=== PATIENT | female | born 1955 | race African-American/Black ===

== ENCOUNTER 2022-08-23 18:17 | Emergency (ER) | payer OTHER, BC ==
[~2022-08-23] VITALS: Ht 167.6 cm; Wt 97.5 kg
[2022-08-23 19:47] LABS: BASOPHILS % (AUTO) 0.2 % (0.0-5.0); EOSINOPHILS % (AUTO) 4.1 % (0.0-8.0); HEMATOCRIT 36.2 % (36-48); LYMPHOCYTES % (AUTO) 10.9 % (21.0-51.0); MEAN CORPUSCULAR HGB CONC 34.3 g/dL (32.0-36.0); MEAN CORPUSCULAR VOLUME 78.7 fL (79-99); NEUTROPHILS % (AUTO) 79.3 % (40.0-77.0); PLATELET COUNT (AUTO) 231 K/uL (130-400); RED CELL DISTRIBUTION WIDTH 15.9 % (11.0-15.5); WHITE BLOOD COUNT (AUTO) 12.8 K/uL (4.8-10.8)
[2022-08-23 20:06] LABS: ALBUMIN 4.2 g/dL (3.5-5.0)
[2022-08-23] MEDS ORDERED: LACT10SO9 PO (21:56)
[2022-08-24 02:10] VITALS: BP 161/74
== END 2022-08-24 02:15 | disposition home or self-care (01) ==
LOC: EDH 18:17
DX: K59.00 Constipation, unspecified (principal); E11.9 Type 2 diabetes mellitus without complications; E78.00 Pure hypercholesterolemia, unspecified; Z86.73 Personal history of transient ischemic attack (TIA), and cerebral infarction without residual deficits; Z88.1 Allergy status to other antibiotic agents
CPT/HCPCS: 36415; 74176; 80053; 85025

== ENCOUNTER 2022-09-09 19:50 | Emergency (ER) | payer BC, OTHER ==
[~2022-09-09] VITALS: Ht 165.1 cm; Wt 74.8 kg
[~2022-09-09 19:50] MED LIST: LACT10SO9 PO
[2022-09-09 20:25] LABS: BASOPHILS % (AUTO) 0.4 % (0.0-5.0); LYMPHOCYTES % (AUTO) 31.3 % (21.0-51.0); MEAN CORPUSCULAR HEMOGLOBIN 26.1 pg (27.0-33.0); MEAN CORPUSCULAR HGB CONC 33.8 g/dL (32.0-36.0); MEAN CORPUSCULAR VOLUME 77.1 fL (79-99); MONOCYTES % (AUTO) 9.6 % (3.0-13.0); NEUTROPHILS % (AUTO) 48.4 % (40.0-77.0); PLATELET COUNT (AUTO) 274 K/uL (130-400); RED BLOOD CELL COUNT(AUTO) 4.41 MIL/uL (4.00-5.50); RED CELL DISTRIBUTION WIDTH 15.9 % (11.0-15.5)
[2022-09-09 20:36] LABS: CARBON DIOXIDE 31 mmol/L (21-32); CHLORIDE 104 mmol/L (101-111); CREATININE 0.8 mg/dL (0.5-1.5); GLOMERULAR FILTR. RATE CALC 92 mL/min (>60); GLUCOSE,RANDOM 112 mg/dL (70-105); INR 0.93 (0.85-1.15); POTASSIUM 4.4 mmol/L (3.5-5.1); PROTHROMBIN TIME 10.2 SEC (9.6-11.6); SODIUM SERUM 141 mmol/L (136-145); UREA NITROGEN, BLOOD 24 mg/dL (7-18)
[2022-09-09 20:37] LABS: PARTIAL THROMBOPLASTIN TIME 23.7 SEC (26.3-35.5)
[2022-09-09 20:43] LABS: ALANINE AMINOTRANSFERASE 18 U/L (12-78); ALBUMIN 3.6 g/dL (3.5-5.0); ALCOHOL, BLOOD < 3 mg/dL (0-10); ASPARTATE AMINOTRANSFERASE 16 U/L (10-37); TOTAL PROTEIN, SERUM 7.7 g/dL (6.0-8.3)
[2022-09-09 22:54] VITALS: BP 168/65
[2022-09-09] MEDS ORDERED: CLOP-31 PO (23:03)
== END 2022-09-09 23:04 | disposition home or self-care (01) ==
LOC: EDH 19:50
DX: S09.90XA Unspecified injury of head, initial encounter (principal); E11.9 Type 2 diabetes mellitus without complications; E78.00 Pure hypercholesterolemia, unspecified; I10 Essential (primary) hypertension; Z79.02 Long term (current) use of antithrombotics/antiplatelets; Z86.73 Personal history of transient ischemic attack (TIA), and cerebral infarction without residual deficits; Z88.1 Allergy status to other antibiotic agents; Z79.899 Other long term (current) drug therapy; W18.30XA Fall on same level, unspecified, initial encounter; Y93.89 Activity, other specified; Y92.89 Other specified places as the place of occurrence of the external cause; Y99.8 Other external cause status
CPT/HCPCS: 36415; 70450; 71045; 72125; 80053; 84484; 85025; 85610; 85730; 86850; 86900; 86901; 93005

== ENCOUNTER → 2023-02-11 | Outpatient (CLI) | payer OTHER ==
[~2023-02-11] MED LIST changes: +CLOP-31 PO
== END | disposition home or self-care (01) ==
LOC: SHCH 08:01
PROVIDERS: ATTEND Internal Medicine Cardiovascular Disease
DX: I08.0 Rheumatic disorders of both mitral and aortic valves (principal); I11.9 Hypertensive heart disease without heart failure; E11.9 Type 2 diabetes mellitus without complications; E78.5 Hyperlipidemia, unspecified
CPT/HCPCS: 93306

== ENCOUNTER → 2023-02-11 | Outpatient (CLI) | payer OTHER | END | disposition home or self-care (01) | LOC: RAH 08:39 | PROVIDERS: ATTEND Internal Medicine Cardiovascular Disease | DX: Z13.6 Encounter for screening for cardiovascular disorders (principal) | CPT/HCPCS: 75571 ==

== ENCOUNTER → 2023-02-19 | Outpatient (CLI) | payer OTHER | END | disposition home or self-care (01) | LOC: SHCH 11:35 | PROVIDERS: ATTEND Internal Medicine Cardiovascular Disease | DX: I65.23 Occlusion and stenosis of bilateral carotid arteries (principal); R09.89 Other specified symptoms and signs involving the circulatory and respiratory systems; I67.9 Cerebrovascular disease, unspecified | CPT/HCPCS: 93880 ==

== ENCOUNTER → 2023-02-24 | Outpatient (CLI) | payer MEDICARE ==
[2023-02-24 12:40] LABS: POTASSIUM 4.6 mmol/L (3.5-5.1); T4 (THYROXINE) 7.7 ug/dL (4.7-13.3); THYROID STIMULATING HORMONE 1.49 uIU/mL (0.36-3.74)
== END | disposition home or self-care (01) ==
LOC: LAB 08:30
PROVIDERS: ATTEND Student in an Organized Health Care Education/Training Program
DX: I10 Essential (primary) hypertension (principal); I49.3 Ventricular premature depolarization
CPT/HCPCS: 36415; 80048; 80061; 84436; 84443; 84479

== ENCOUNTER → 2023-03-05 | Outpatient (CLI) | payer OTHER ==
[~2023-03-05] MED LIST changes: +IOHEXOL 350 MG/ML 100ML INFUS..BTL IV ONE
== END | disposition home or self-care (01) ==
LOC: RAH 07:49
PROVIDERS: ATTEND Internal Medicine Cardiovascular Disease
DX: I10 Essential (primary) hypertension (principal); E78.5 Hyperlipidemia, unspecified
CPT/HCPCS: 75574; Q9967

== ENCOUNTER 2025-04-14 11:59 | Emergency (ER) | payer OTHER, MEDICARE ==
[~2025-04-14] VITALS: Ht 165.1 cm; Wt 77.1 kg
[~2025-04-14 11:59] MED LIST changes: -IOHEXOL 350 MG/ML 100ML INFUS..BTL IV ONE
[2025-04-14] MEDS: 0.9%NACL 1000ML 1,000 ML IV ONE (13:07)
[2025-04-14] MEDS: LOPERAMIDE HCL 2 MG CAP PO ONE (13:07)
[2025-04-14 13:11] LABS: IMMATURE GRANULOCYTE ABSOLUTE 0.01 K/uL (0-1); NUCLEATED RED BLOOD CELLS 0.0 % (0.0-0.19); PLATELET COUNT (AUTO) 255 K/uL (130-400); RED BLOOD CELL COUNT(AUTO) 4.61 MIL/uL (4.00-5.50); RED CELL DISTRIBUTION WIDTH 19.8 % (11.0-15.5); WHITE BLOOD COUNT (AUTO) 8.4 K/uL (4.8-10.8)
[2025-04-14 13:47] LABS: ASPARTATE AMINOTRANSFERASE 15.0 U/L (10-37); CREATININE 0.8 mg/dL (0.5-1.0); GLOMERULAR FILTR. RATE CALC 79.0 mL/min (>90); GLUCOSE,RANDOM 109.0 mg/dL (70-105); SODIUM SERUM 140.0 mmol/L (136-145); UREA NITROGEN, BLOOD 20.0 mg/dL (7-18)
[2025-04-14 13:48] LABS: TOTAL PROTEIN, SERUM 6.9 g/dL (6.0-8.3)
[2025-04-14 14:00] VITALS: BP 148/56; PULSE 59; RESP 18; TEMP 97.6; O2SAT 99
[2025-04-14 15:17] LABS: APPEARANCE,URINE CLEAR (CLEAR); GLUCOSE, URINE (UA) NEGATIVE (NEGATIVE); LEUKOCYTE ESTERASE ,URINE NEGATIVE Leu/uL (NEGATIVE); NITRATE,URINE NEGATIVE (NEGATIVE); OCCULT BLOOD,URINE NEGATIVE (NEGATIVE)
[2025-04-14 15:20] LABS: ADD UA MICROSCOPIC NO
--- NOTE | 2025-04-14 15:28 | ERN ---
General Chief Complaint: Diarrhea Stated Complaint: DIARRHEA Time Seen by MD: 12:01 Time Seen by Midlevel: 12:01 Source: patient History of Present Illness Initial Comments Patient is a 70year old female being brought in by daughter for evaluation of diarrhea that has been ongoing for two days. No fever, chills, nausea, vomiting, or blood in the stool has been noted. The patient was coming from an assisted living facility. According to daughter there was a recent outbreak of RSV and the patients has had to be quarantine for one week. Otherwise the patient was no other concerns at this time. She reports a past medical history of a CVA with left-sided deficit. Allergies: Coded Allergies: cephalexin (Unverified Allergy, Unknown, 08/23/22) Home Meds Active Scripts Lactulose (Lactulose) 20 Gm/30 Ml Solution, 20 GM PO DAILY for 30 Days, #900 ML Prov:CELESTINO CARLSON MD 08/23/22 Reported Medications Clopidogrel Bisulfate (Plavix) 75 Mg Tablet, 75 MG PO DAILY, TAB 09/09/22 Past Medical History Past Medical History: Asthma, CVA, Diabetes-Type II, High Cholesterol, Hypertension Medical History Other: STROKE 3 YEARS AGO Past Surgical History: Hysterectomy, Tonsillectomy Social History Social History: Negative, [facility] ROS Dictation CONSTITUTIONAL: Negative except for HPI HEAD/FACE: Negative except for HPI EENT: Negative except for HPI RESPIRATORY: Negative except for HPI GASTROINTESTINAL/ABDOMINAL: Negative except for HPI GENITOURINARY: Negative except for HPI MUSCULOSKELETAL: Negative except for HPI INTEGUMENTARY: Negative except for HPI NEUROLOGICAL/PSYCH: Negative except for HPI HEMATOLOGIC/LYMPHATIC: Negative except for HPI All Systems Negative, Except as noted above. 13 point review of systems assessed and all negative except for above. Physical Exam Physical Exam Dictation Vital Signs reviewed General Appearance: Alert, oriented x 3, no acute distress, well developed, nourished. Head and Face: non-traumatic. Eyes: PERRL, pink conjunctivas, eyelid no trauma, anterior chamber with arcus senilis. Ears: Pinnas intact and no signs of trauma or erythema ear canals clear and no discharge TM no erythema Nose: No discharge, no bleeding. Oropharynx: Mouth normal, tongue pink, pharynx clear,no erythema, tonsils no exudates, no abscesses noted, mucous membrane moist Neck: Supple, non-tender, no thyromegaly, no masses, no JVD, no bruits Breast:Deferred Chest:No tenderness, no crepitus, no paradoxical movement, no retractions Lungs:Clear, well-ventilated, symmetric, no rales, no wheezing, no rhonchi, no stridor, good breath sounds bilaterally Heart: Regular rate, regular rhythm, no murmur, no gallops Vascular: no peripheral edema, Abdomen: Soft, positive bowel sounds, nondistended, no guarding, nontender, no rebound, no masses no hepatomegaly, no splenomegaly, no Stern's sign, no hernias. Rectal: Deferred Genital: Deferred Neurological: Normal speech, motor function intact, sensory function intact Musculoskeletal: Neck nontender, full range of motion, back nontender, full range of motion, Extremities: Limited range motion to the left upper and left lower extremity consistent with previous CVA Skin: Color pink, dry, no turgor, no rash, no lacerations, no abrasions, no contusions. Lymphatic: Deferred Results Laboratory and Microbiology Lab and Micro Result Laboratory Tests Test 04/14/25 13:06 04/14/25 13:26 04/14/25 15:10 White Blood Count 8.4 K/uL (4.8-10.8) Red Blood Count 4.61 MIL/uL (4.00-5.50) Hemoglobin 11.5 g/dL (12.0-16.0) L Hematocrit 35.5 % (36-48) L Mean Corpuscular Volume 77.0 fL (79-99) L Mean Corpuscular Hemoglobin 24.9 pg (27.0-33.0) L Mean Corpuscular Hemoglobin Concent 32.4 g/dL (32.0-36.0) Red Cell Distribution Width 19.8 % (11.0-15.5) H Platelet Count 255 K/uL (130-400) Mean Platelet Volume 11.3 fL (7.5-10.5) H Immature Granulocyte % (Auto) 0.1 % (0-1) Neutrophils (%) (Auto) 61.8 % (40.0-77.0) Lymphocytes (%) (Auto) 21.3 % (21.0-51.0) Monocytes (%) (Auto) 9.0 % (3.0-13.0) Eosinophils (%) (Auto) 7.3 % (0.0-8.0) Basophils (%) (Auto) 0.5 % (0.0-5.0) Neutrophils # (Auto) 5.2 K/uL (1.8-7.7) Lymphocytes # (Auto) 1.8 K/uL (1.0-4.8) Monocytes # (Auto) 0.8 K/uL (0.1-1.0) Eosinophils # (Auto) 0.61 K/uL (0.00-0.70) Basophils # (Auto) 0.04 K/uL (0.00-0.20) Absolute Immature Granulocyte (auto 0.01 K/uL (0-1) Nucleated Red Blood Cells 0.0 % (0.0-0.19) Red Blood Cell Morphology See comments Sodium Level 140 mmol/L (136-145) Potassium Level 4.5 mmol/L (3.5-5.1) Chloride Level 105 mmol/L (101-111) Carbon Dioxide Level 29 mmol/L (21-32) Blood Urea Nitrogen 20 mg/dL (7-18) H Creatinine 0.8 mg/dL (0.5-1.0) Glomerular Filtration Rate Calc 79 mL/min (>90) Random Glucose 109 mg/dL (70-105) H Total Calcium 8.5 mg/dL (8.5-10.1) Total Bilirubin 0.5 mg/dL (0.2-1.0) Direct Bilirubin 0.1 mg/dL (0.0-0.3) Aspartate Amino Transf (AST/SGOT) 15 U/L (10-37) Alanine Aminotransferase (ALT/SGPT) 23 U/L (12-78) Alkaline Phosphatase 99 U/L (50-136) Total Protein 6.9 g/dL (6.0-8.3) Albumin 3.2 g/dL (3.5-5.0) L Urine Color LIGHT-YELLOW (YELLOW) Urine Appearance CLEAR (CLEAR) Urine pH 6.0 (5.0-8.0) Urine Specific Elk 1.013 (1.001-1.031) Urine Protein NEGATIVE mg/dL (NEGATIVE) Urine Glucose (UA) NEGATIVE mg/dL (NEGATIVE) Urine Ketones NEGATIVE mg/dL (NEGATIVE) Urine Occult Blood NEGATIVE (NEGATIVE) Urine Nitrate NEGATIVE (NEGATIVE) Urine Bilirubin NEGATIVE mg/dL (NEGATIVE) Urine Urobilinogen 0.2 mg/dL (0.2-1.0) Urine Leukocyte Esterase NEGATIVE Rashad/uL Labs Reviewed?: Yes MDM MDM: Patient is a 70year old female being brought in by daughter for evaluation of diarrhea that has been ongoing for two days. No fever, chills, nausea, vomiting, or blood in the stool has been noted. The patient was coming from an assisted living facility. According to daughter there was a recent outbreak of RSV and the patients has had to be quarantine for one week. Otherwise the patient was no other concerns at this time. She reports a past medical history of a CVA with left-sided deficit. On physical examination the patient was in no acute distress. Initial vital signs are stable. Patient was afebrile and nontoxic appearing. CBC shows no leukocytosis, no anemia, no thrombocytopenia. Chemistries are unremarkable. No signs of dehydration. Urinalysis shows no evidence of infection. Symptoms most likely related to something she ate. We will discharged home with a diagnosis of viral gastroenteritis. Strict return precautions were given to daughter. Differential diagnosis: Viral gastroenteritis, dehydration, urinary tract infection There are no social concerns with this patient. Prescription drug management Prescriptions will include: None Medical management and examination interpretation discussions were had by me with other qualified healthcare professionals as indicated for the patient's care. ED Course Orders Procedure Category Date Status Time Cbc With Differential LAB 04/14/25 Complete 12:10 Urinalysis Profile LAB 04/14/25 Complete 12:10 0.9%Nacl 1000ml (Ns PHA 04/14/25 Complete 1000ml) 12:30 Loperamide Hcl 2 Mg PHA 04/14/25 Complete Cap (Imodium) 12:30 Basic Metabolic Panel LAB 04/14/25 Complete 13:16 Hepatic Function Panel LAB 04/14/25 Complete 13:16 Current Medications Medications (Trade) Dose Ordered Sig/Noah Route PRN Reason Start Time Stop Time Status Last Admin Dose Admin Loperamide HCl (Imodium) 2 mg ONCE ONCE PO 04/14/25 12:30 04/14/25 12:31 DC 04/14/25 13:07 Sodium Chloride 1,000 ml @ 0 mls/hr ONCE ONCE IV 04/14/25 12:30 04/14/25 12:31 DC 04/14/25 13:07 Vital Signs Date Time Temp Pulse Resp B/P (MAP) Pulse Ox O2 Delivery O2 Flow Rate FiO2 04/14/25 14:00 97.5 59 18 148/56 99 Room Air* 0 04/14/25 12:30 97.9 57 19 153/67 97 Room Air* 0 21 04/14/25 12:06 97.3 63 18 133/56 96 Room Air* 0 04/14/25 12:01 97.3 63 18 133/56 96 Room Air DX & DISP Disposition: Discharge Departure Impression: Primary Impression: Viral gastroenteritis Condition: Stable Additional Instructions: Your blood work today is stable. Your CBC shows no elevation in your white blood cell count. Electrolytes are normal. Kidney function is normal. Urinalysis does not show any evidence of infection. Symptoms are most likely related to something that you ate. If you have persistent diarrhea over the next week please return to the ER for further evaluation. Follow up with your primary care doctor in 2-3 days for repeat evaluation. Return to the ER for any new or worsening symptoms Referrals: SELF,REFERRAL (PCP) I have reviewed the case, and I agree with, Diagnosis and Plan I performed the substantive portion of the visit. I have reviewed and personally made and approve the management plan that is documented in the note by myself or the CHANDRAKANT. I acknowledge for responsibility for the patient's management plan. KIMBERLYN ENCISO Apr 14, 2025 15:28
== END 2025-04-14 15:32 | disposition home or self-care (01) ==
LOC: EDH 11:59
DX: A08.4 Viral intestinal infection, unspecified (principal); E11.9 Type 2 diabetes mellitus without complications; E78.00 Pure hypercholesterolemia, unspecified; I10 Essential (primary) hypertension; J45.909 Unspecified asthma, uncomplicated; Z79.02 Long term (current) use of antithrombotics/antiplatelets; Z86.73 Personal history of transient ischemic attack (TIA), and cerebral infarction without residual deficits; Z88.1 Allergy status to other antibiotic agents; Z90.710 Acquired absence of both cervix and uterus
CPT/HCPCS: 99283; 96360; 80076; 80048; 85025; 81003; 36415; J7030